=== PATIENT | male | born 1945 | race Caucasian/White ===

== ENCOUNTER 2021-04-26 12:12 | Outpatient (CLI) | payer OTHER, MEDICARE | END 2021-04-26 12:13 | disposition home or self-care (01) | LOC: MADRAD 12:12 | PROVIDERS: ATTEND Family Medicine | DX: R10.84 Generalized abdominal pain (principal); R19.8 Other specified symptoms and signs involving the digestive system and abdomen | CPT/HCPCS: 74019 ==

== ENCOUNTER 2021-10-25 09:38 | Outpatient (CLI) | payer OTHER, MEDICARE | END 2021-10-25 09:39 | disposition home or self-care (01) | LOC: MADRAD 09:38 | PROVIDERS: ATTEND Family Medicine | DX: M25.552 Pain in left hip (principal); M25.562 Pain in left knee; M16.12 Unilateral primary osteoarthritis, left hip; M17.12 Unilateral primary osteoarthritis, left knee ==

== ENCOUNTER 2021-11-06 14:18 | Outpatient (CLI) | payer OTHER, MEDICARE | END 2021-11-06 14:19 | disposition home or self-care (01) | LOC: MADEKG 14:18 | PROVIDERS: ATTEND Family Medicine | DX: R07.9 Chest pain, unspecified (principal); R42 Dizziness and giddiness | CPT/HCPCS: 93005; 93010 ==